=== PATIENT | female | born 2000 | race Caucasian/White ===

== ENCOUNTER 2018-01-17 02:36 | Emergency (ER) | payer OTHER ==
[~2018-01-17] VITALS: Ht 157.5 cm; Wt 44.0 kg
[~2018-01-17 02:36] MED LIST: PREDNISONE10 M2 PO
--- NOTE | 2018-01-17 03:29 | ED GI/GU/ABDOMINAL COMPLAINT ---
History of Present Illness General Chief Complaint: Female Urogenital Problems Stated Complaint: PT C/O TAMPON STUCK IN VAGINA CALLED EARLIER Source: patient, old records, friend Exam Limitations: no limitations Vital Signs & Intake/Output Vital Signs & Intake/Output Vital Signs Date Time Temp Pulse Resp B/P B/P Pulse O2 O2 Flow FiO2 Mean Ox Delivery Rate 01/17 0255 98.4 104 18 119/74 98 Room Air Allergies Coded Allergies: amoxicillin (HIVES 12/06/15) Reconcile Medications Medroxyprogesterone Acetate (Provera) 10 MG TABLET 1 TAB PO DAILY dysfunctional uterine bleeding Triage Note: PT COMING IN FROM HOME C/O A TAMPON STUCK IN HER VAGINA. PT STATES "I PUT A TAMPON IN AND FORGOT I HAD ANOTHER ONE IN THERE AND NOW ITS STUCK." PT STATES "MY STOMACH FEELS WEIRD" BUT DENIES ANY PAIN. PT STATES SHE HAS HAD HER PERIOD FOR APPROXIMATELY 2.5 WEEKS AND HER PERIOD NORMALLY LASTS 4 DAYS. PT STATES SHE DOES NOT KNOW HOW LONG THE TAMPON THAT GOT STUCK HAS BEEN IN THERE FOR. PT DENIES ANY OTHER COMPLAINTS AT THIS TIME. Triage Nurses Notes Reviewed? yes LMP (ages 10-50): unknown ? n Is pt currently ? No Onset: 3 days Duration: day(s):, constant, continues in ED Timing: recent history Quality/Severity: fullness, moderate Location: vaginal Radiation: no radiation Activities at Onset: rest Prior Abdominal Problems: none Past Sexual History: Unobtainable at this time No Modifying Factors: none HPI: Several months prior to admission she was taken off her oral contraceptives secondary to breakthrough bleeding. 2 and 1/2 weeks prior to admission patient complains of vaginal bleeding / prolonged menses. 3 days prior to admission she feels her tampons were into her vagina differently. Prior to admission she thinks she has a tampon in her vagina that she cannot get out. She denies fever chills nausea vomiting diarrhea abdominal pain chest pain shortness breath headache dysuria rash. Past History Travel History Traveled to [place] past 21 day No Medical History Any Pertinent Medical History? none Neurological: NONE EENT: NONE Cardiovascular: NONE Respiratory: NONE Gastrointestinal: NONE Hepatic: NONE Renal: NONE Musculoskeletal: NONE Psychiatric: NONE Endocrine: NONE Surgical History Surgical History: non-contributory Psychosocial History What is your primary language [place] Tobacco Use: Current Daily Use Daily Tobacco Use Amount/Type: => 5 Cigarettes daily Family History Hx Contributory? No Review of Systems Review of Systems Constitutional: Reports: no symptoms. EENTM: Reports: no symptoms. Respiratory: Reports: no symptoms. Cardiovascular: Reports: no symptoms. GI: Reports: no symptoms. Genitourinary: Reports: see HPI. Musculoskeletal: Reports: no symptoms. Skin: Reports: no symptoms. Neurological/Psychological: Reports: no symptoms. Hematologic/Endocrine: Reports: no symptoms. Immunologic/Allergic: Reports: no symptoms. All Other Systems: Reviewed and Negative Physical Exam Physical Exam General Appearance: well developed/nourished, alert, awake, anxious, moderate distress, thin Head: atraumatic, normal appearance Eyes: Bilateral: normal appearance, PERRL, EOMI, normal inspection. Ears, Nose, Throat, Mouth: hearing grossly normal, moist mucous membrane Neck: normal inspection, supple, full range of motion, normal alignment Respiratory: normal breath sounds, chest non-tender, no respiratory distress, quiet respiration, lungs clear Cardiovascular: regular rate/rhythm, normal peripheral pulses, norml femoral pulses equa Peripheral Pulses: 4+ carotid (R), 4+ carotid (L) Gastrointestinal: normal bowel sounds, soft, non-tender, no organomegaly Pelvic: normal external exam, normal speculum exam, no cerv. motion tender, no tampon found Back: normal inspection, normal range of motion, no vertebral tenderness Extremities: normal range of motion, no ligament instability Neurologic/Psych: no motor/sensory deficits, awake, alert, oriented x 3, normal gait, pneumatic tube fitter II-XII nml as tested Skin: intact, normal color, warm/dry Core Measures ACS in differential dx? No Sepsis Present: No Sepsis Focused Exam Completed? 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 Donald Departure Forms: Customer Survey General Discharge Information Prescriptions: Current Visit Scripts Medroxyprogesterone Acetate (Provera) 1 TAB PO DAILY #10 TAB
[2018-01-17] MEDS ORDERED: PROVERA10 MG PO (03:55)
[2018-01-17 04:07] VITALS: BP 108/85
== END 2018-01-17 04:12 ==
LOC: ERH 02:36
DX: N93.8 Other specified abnormal uterine and vaginal bleeding (principal)
CPT/HCPCS: 81025